=== PATIENT | female | born 2005 | race Caucasian/White ===

== ENCOUNTER 2023-09-12 04:54 | Emergency (ER) | payer BC, SELFPAY ==
[2023-09-12 05:01] VITALS: BP 135/78; PULSE 115; RESP 20; TEMP 37.3; O2SAT 99; BMI 17.2
[2023-09-12] MEDS: ONDANSETRON ODT 4 MG TAB PO (05:40)
--- NOTE | 2023-09-12 05:44 | ED_ITS ---
HPI - General Adult General Chief complaint: Nausea/Vomiting Stated complaint: Diarrhea, vomiting Time Seen by Provider: 09/12/23 04:55 Source: patient Mode of arrival: ambulatory Limitations: no limitations History of Present Illness HPI narrative: 18-year-old female with no chronic medical issues presents to the emergency department with loose stools, potentially 1 bloody stool. She reports that she had very mild malaise, headache for about 24 hours. Last night after dinner, she had some mild abdominal cramping and then episode of loose stools around 11:00 p.m.. She took Imodium, 2 tablets and did have improvement of her symptoms and slept until 4:00 a.m.. At that time, she awoke with the urge to have another bowel movement. She had another very loose bowel movement and thought that there could be blood in it but she was unsure as she is on her menstrual cycle. When she wiped the menstrual area it also contained a similar quality of blood but she thought potentially there could have been blood mixed in with the stool also she is definitely unsure. She is not having any abdominal pain, there is no fever. There was no trauma or injury. She does describe that a friend had nausea but no true vomiting within the last couple of days as her only sick contact. No pertinent travel, no recent use of antibiotic. She had 1 other loose stool then prior to coming to the ED about 1 hour later and it reliably did not contain any blood. No history of inflammatory bowel disease or any cancers. She does not use any anticoagulants. She did have a single episode of vomiting around 4:00 a.m. and is still feeling nauseated but has not had any persistent vomiting. She does wonder if the vomiting was caused by the anxiety at the site of the blood. This menstrual cycle is otherwise uncomplicated and she denies chance of . Did not try any other interventions to help with her symptoms besides the Imodium discussed above. Past medical history is notable for anxiety. She reports p.r.n. use of hydroxyzine. Lexapro is listed in our records and she denies use of this. No prior abdominal surgeries. Socially is a nonsmoker without pertinent travel. ROS is notable for the generalized and GI symptoms as above, otherwise denies times 12 systems. Related Data Home Medications Medication Instructions Recorded Confirmed escitalopram oxalate 5 mg tablet 5 mg PO DAILY 09/12/23 09/12/23 Allergies Allergy/AdvReac Type Severity Reaction Status Date / Time No Known Drug Allergies Allergy Verified 09/12/23 05:03 [facility] Medical History Anxiety ?F41.9 - Anxiety disorder, unspecified (ICD-10) Surgical History No significant past surgical history Social History Smoking Status: Never smoker Second hand tobacco smoke exposure: No How often do you have a drink containing alcohol: never How often do you have six or more drinks on one occasion: Never AUDIT-C Alcohol total score: 0 Non-prescribed substance use: denies use Exam Const: Vital Signs, click to edit/add: Vital Signs - 24 hr 09/12/23 05:01 Temperature 99.2 F Pulse Rate [Right Pulse Oximeter] 115 H Respiratory Rate 20 Blood Pressure [Ri ght Upper Arm] 135/78 Pulse Oximetry 99 Oxygen Delivery Me thod Room Air Documenting provider has reviewed patient's vital signs: yes Common normals: no apparent distress General appearance: cooperative, comfortable and well kempt Other: Mildly anxious but otherwise appears very well. Nontoxic. Heart rate is under 100 at the time of my auscultation. HENMT: Common normals: normocephalic and head/scalp atraumatic Head and scalp: normocephalic and atraumatic Face and sinus: normal facial exam Mouth: oral and palatal mucosa normal Eye: Common normals: conjunctivae normal General eye: normal appearance of both eyes Conjunctiva: conjunctiva(e) normal Neck & C-Spine: General: normal visual inspection Resp: Common normals: normal respiratory effort, no use of accessory muscles and clear to auscultation bilaterally Effort & inspection: able to speak in complete sentences Auscultation: clear to auscultation bilaterally Cardio: Common normals: regular rate, regular rhythm, S1 normal heart sound, S2 normal heart sound and no murmurs Rate: regular rate Rhythm: regular rhythm Heart sounds: S1 normal and S2 normal GI: Common normals: Normal to inspection, nondistended, normoactive bowel sounds present, soft to palpation, non-tender, no hepatosplenomegaly and no masses Palpation: soft and no hepatosplenomegaly : Other: Rectal exam appears normal externally, verbal consent was obtained, she declined a a estate planning paralegal. Single digital exam shows no evidence of mass, ulceration or tenderness. Normal anal tone and normal feeling mucosa. There is no palpable stool in the rectal vault so a blind sweep was made around the rectum and finger is removed. I used a stool Hemoccult card and this stains negative for blood. Extremity: Common normals: normal to inspection, normal capillary refill and no pedal edema Neuro: Speech: speech normal Motor exam: strength 5/5 throughout and no movement abnormalities noted Psych: Appearance: well kempt Attitude: engaged Insight: insight good Judgement: judgment good Skin: Common normals: no rashes or lesions noted General skin exam: no rashes or lesions noted Course Course ED Course: Benign exam, no signs of dehydration. No signs of persistent bleeding and I do suspect that the blood she noticed was most likely menstrual as I do not see any evidence of blood in the vault but certainly could have been a single episode of bleeding related to gastroenteritis. We discussed alarm symptoms for persistent bleeding. At this time I am okay with her using Imodium and Zofran. She is given Zofran and 1 single Imodium here in the ED and additional supply of Zofran from [employer]. We thoroughly reviewed alarm symptoms that would warrant further ED follow-up including persistent bleeding, high fevers, signs and symptoms of dehydration, abdominal pain etc.. She verbalizes understanding and agreement. We discussed the brat diet and stepwise reintroduction of nutrition, she verbalizes understanding. I do not recommend CT imaging or blood work based on her story. I reassured her that this is a very unlikely presentation for colon cancer but if she has 3 episodes, she should seek input from a primary care provider. Colonoscopy is are not typically done emergently and I do not think 1 is indicated in this instance. If she has further concern for menstrual verses rectal bleeding, I would recommend that she consider using tampons rather than menstrual pads as this may clarify the source for her. Vital Signs Vital signs: Initial Vital Signs Temperature 99.2 F 09/12/23 05:01 Temperature Source Temporal Artery Scan 09/12/23 05:01 Pulse Rate 115 H 09/12/23 05:01 Respiratory Rate 20 09/12/23 05:01 Blood Pressure 135/78 09/12/23 05:01 Blood Pressure Mean 97 09/12/23 05:01 Blood Pressure Position Sitting 09/12/23 05:01 Pulse Oximetry 99 09/12/23 05:01 Oxygen Delivery Method Room Air 09/12/23 05:01 Vital Signs Temperature 99.2 F 09/12/23 05:01 Pulse Rate 115 H 09/12/23 05:01 Respiratory Rate 20 09/12/23 05:01 Blood Pressure 135/78 09/12/23 05:01 Pulse Oximetry 99 09/12/23 05:01 Oxygen Delivery Method Room Air 09/12/23 05:01 Temperature 99.2 F 09/12/23 05:01 Pulse Rate 115 H 09/12/23 05:01 Respiratory Rate 20 09/12/23 05:01 Blood Pressure 135/78 09/12/23 05:01 Pulse Oximetry 99 09/12/23 05:01 Oxygen Delivery Method Room Air 09/12/23 05:01 Discharge Plan Discharge Clinical Impression: Gastroenteritis Patient Disposition: Home w/ Parent or Adult Condition: Stable Instructions: Gastroenteritis (DC) Additional Instructions: As we discussed, there was no blood on your rectal exam which is somewhat reassuring. You certainly could have had an episode of bloody diarrhea but at this time there are no signs of persistent bleeding. This does rule out most of the dangerous causes of rectal bleeding. Chances are, if you did have rectal bleeding and it was not menstrual, it was related to a small area of localized inflammation of the colon from the virus and has closed up on its own now. I would not be worried if you do have a little bit more similar bleeding as long as it stops again. This may last for up to 48 hours. Chances are, this entire episode was caused by a virus, we lump these into a family called gastroenteritis. These are highly contagious and are far more common than bacterial food poisoning. Chances are your friend that is having headache and nausea has the same virus. You did an excellent job by starting Imodium last night. I recommend that you continue taking 1 Imodium tablet with every large loose stool episode. You may do this for up to 48 more hours. I will give you prescription for Zofran, also known as ondansetron. Take 1 tablet up to every 6 hours as needed for nausea and vomiting. As far as foods, start with soft, gentle foods and lots of clear liquids. These are things like crackers, toast, rice, bananas. Tea, diluted juice, water are often better than dairy products. Avoid heavier foods until you are feeling better. You should come into the emergency department if you are truly unable to hold down any liquids for over 16 hours even with medications. You should come in if you have persistent bleeding for over 48 hours or if you start having heavy bleeding and then also significant dizziness, lightheadedness at rest or other alarming symptoms. I do not recommend a colonoscopy based on your description of symptoms but if you do continue to have 3 or more total episodes, you should discuss this further with your primary care provider. If that were the case, colonoscopies are typically done about 6 weeks after the episode, not immediately. If you run a fever over 100.4 for more than 24 hours, you should seek re-evaluation, especially if there is severe abdominal pain. Wash her hands frequently, use good hygiene in the bathroom to help avoid spread to others. Activity Level: No Restrictions Prescriptions: No Action escitalopram oxalate 5 mg tablet 5 mg PO DAILY Stand Alone Forms: [employer] Info Instructions
[2023-09-12] MEDS: LOPERAMIDE HCL 2 MG CAPSULE PO (05:45)
[2023-09-12 05:55] VITALS: BP 125/74; PULSE 99; RESP 20; TEMP 37.3; O2SAT 99
[2023-09-12 05:56] VITALS: BP 125/74; PULSE 99; RESP 20; TEMP 37.3
== END 2023-09-12 06:00 | disposition home or self-care (01) ==
PROVIDERS: Emergency Provider Family Medicine
DX: K52.9 Noninfective gastroenteritis and colitis, unspecified (principal)
CPT/HCPCS: 99283; A9270